=== PATIENT | male | born 1960 | race Two or more races ===

== ENCOUNTER 2016-11-17 07:16 | Day surgery (SDC) | payer BC ==
[~2016-11-17] VITALS: Ht 160 cm; Wt 79.4 kg
== END 2016-11-17 10:25 | disposition short-term general hospital (02) ==
LOC: SURGOP 07:16
PROC: 0DJD8ZZ Inspection of Lower Intestinal Tract, Via Natural or Artificial Opening Endoscopic (ICD-10-PCS; principal; 2016-11-17)
DX: Z12.11 Encounter for screening for malignant neoplasm of colon (principal); C95.90 Leukemia, unspecified not having achieved remission; N40.0 Benign prostatic hyperplasia without lower urinary tract symptoms; Z90.49 Acquired absence of other specified parts of digestive tract
CPT/HCPCS: J2175; J2250